=== PATIENT | female | born 2000 | race Two or more races ===

== ENCOUNTER 2021-07-13 13:52 | Emergency (ER) | payer OTHER ==
[~2021-07-13] VITALS: Ht 149.9 cm; Wt 41.7 kg
[2021-07-13] MEDS ORDERED: PRENATAL + DHA1 EAC1 (14:20)
== END 2021-07-13 18:56 | disposition home or self-care (01) ==
LOC: ER 13:52
DX: O26.891 Other specified pregnancy related conditions, first trimester (principal); Z3A.11 11 weeks gestation of pregnancy; R10.2 Pelvic and perineal pain

== ENCOUNTER 2024-07-23 10:13 | Outpatient (CLI) | payer OTHER ==
[~2024-07-23 10:13] MED LIST: PRENATAL + DHA1 EAC1
== END 2024-07-23 10:15 | disposition home or self-care (01) ==
LOC: PRENATAL 10:13
PROVIDERS: ATTEND Obstetrics & Gynecology Maternal & Fetal Medicine
DX: O44.00 Complete placenta previa NOS or without hemorrhage, unspecified trimester (principal); Z3A.20 20 weeks gestation of pregnancy

== ENCOUNTER → 2024-09-15 13:59 | Outpatient (CLI) | payer OTHER | END | disposition home or self-care (01) | LOC: PRENATAL 13:59 | PROVIDERS: ATTEND Obstetrics & Gynecology Maternal & Fetal Medicine | DX: O26.849 Uterine size-date discrepancy, unspecified trimester (principal); O36.8199 Decreased fetal movements, unspecified trimester, other fetus; Z3A.28 28 weeks gestation of pregnancy ==

== ENCOUNTER 2024-10-15 22:48 | Inpatient (IN) | payer OTHER ==
[~2024-10-15] VITALS: Ht 149.9 cm; Wt 50.8 kg
[2024-10-15 21:59] VITALS: BP 109/71
[2024-10-15 23:13] VITALS: BP 109/71
[2024-10-15] MEDS ORDERED: NIFEDIPINE 30 MG TAB.SA.OSM PO ONE (23:15)
[2024-10-15] MEDS ORDERED: RINGERS SOLUTION,LACTATED 150 ML IV SCH (23:15)
[2024-10-15 23:33] LABS: HEMATOCRIT 31.1 % (36.0-45.00); HEMOGLOBIN 10.5 g/dL (12.0-15.00); MEAN CELL VOLUME 91.1 fL (80.00-100.00); MEAN CORPUSCULAR HEMOGLOBIN 30.8 pg (27.00-32.0); MEAN CORPUSCULAR HGB CONC 33.8 g/dl (32.0-36.0); PLATELET COUNT 322 K/uL (150-450); RED BLOOD COUNT 3.42 M/uL (4.00-6.00); RED CELL DISTRIBUTION WIDTH 12.9 % (11.5-14.5)
[2024-10-15 23:34] LABS: PH,URINE 5.5 (5.0-8.0); URINE APPEARANCE Clear; URINE BACTERIA 2171.3 uL (0.0-1933); URINE BILIRRUBIN Negative (NEGATIVE); URINE BLOOD Negative; URINE COLOR Yellow; URINE EPITHELIAL CELLS 118.1 uL (0.0-38.8); URINE KETONE Negative (NEGATIVE); URINE LEUKOCYTE Trace; URINE NITRATE Negative; URINE PROTEIN Negative (NEGATIVE); URINE UROBILINOGEN 0.2 E.U./dl; URINE WBC 17.7 uL (0.0-23.2)
[2024-10-15 23:37] LABS: URINE CAST 0.29 uL (0.0-1.40); URINE GLUCOSE 100 MG/DL (NEGATIVE); URINE RBC 1.1 uL (0.0-20.8)
[2024-10-16] MEDS ORDERED: CEFAZOLIN SODIUM 1,000 MG VIAL IV SCH
[2024-10-16 04:08] VITALS: BP 93/52
[2024-10-16 06:02] VITALS: BP 99/62; O2SAT 100
[2024-10-16] MEDS ORDERED: BETAMETHASONE ACETATE,SOD PHOS 30 MG/5 ML ML ONE (10:58)
[2024-10-16] MEDS ORDERED: BETAMETHASONE ACETATE,SOD PHOS 30 MG/5 ML ML IM STA (12:31)
[2024-10-16 15:07] VITALS: BP 101/60
[2024-10-16 19:35] VITALS: BP 105/64
[2024-10-16] MEDS ORDERED: NIFEDIPINE 30 MG TAB.SA.OSM PO SCH (21:45)
[2024-10-16 23:26] VITALS: BP 95/52
[2024-10-17 03:00] VITALS: BP 90/60
[2024-10-17 07:33] VITALS: BP 91/50
[2024-10-17] MEDS ORDERED: TERBUTALINE SULFATE 1 MG/ML AMPUL SUBCUTANEO NR (08:30)
[2024-10-17 11:15] VITALS: BP 103/60
[2024-10-17] MEDS ORDERED: BETAMETHASONE ACETATE,SOD PHOS 30 MG/5 ML ML IM ONE (11:15)
[2024-10-17 15:07] VITALS: BP 102/58
[2024-10-17 19:55] VITALS: BP 104/50
[2024-10-17 23:05] VITALS: BP 102/59
[2024-10-18 04:13] VITALS: BP 87/60
[2024-10-18 07:08] VITALS: BP 99/58
[2024-10-18 11:51] VITALS: BP 101/58
[2024-10-18 15:13] VITALS: BP 107/73
[2024-10-18 20:00] VITALS: BP 113/73
[2024-10-18 23:12] VITALS: BP 113/72
[2024-10-19 03:10] VITALS: BP 107/54
[2024-10-19 07:03] VITALS: BP 104/64
[2024-10-19 11:10] VITALS: BP 103/64; O2SAT 99
[2024-10-19 15:05] VITALS: BP 106/70
== END 2024-10-19 16:31 | disposition home or self-care (01) | DRG 833 ==
LOC: OBS/DEL 22:48 → LDR 10-16 12:25 → OBS/DEL 10-16 12:25 → LDR 10-19 16:31
PROVIDERS: ADMIT Obstetrics & Gynecology Obstetrics; ATTEND Obstetrics & Gynecology Obstetrics
PROC: 4A1HXCZ Monitoring of Products of Conception, Cardiac Rate, External Approach (ICD-10-PCS; principal; 2024-10-16)
PROC: BY4FZZZ Ultrasonography of Third Trimester, Single Fetus (ICD-10-PCS; 2024-10-16)
PROC: BU4CZZZ Ultrasonography of Uterus and Ovaries (ICD-10-PCS; 2024-10-16)
DX: O60.03 Preterm labor without delivery, third trimester (principal); O99.893 Other specified diseases and conditions complicating puerperium; O26.843 Uterine size-date discrepancy, third trimester; O36.8130 Decreased fetal movements, third trimester, not applicable or unspecified; Z3A.32 32 weeks gestation of pregnancy

== ENCOUNTER 2024-10-28 10:10 | Outpatient (CLI) | payer OTHER | END 2024-10-28 10:11 | disposition home or self-care (01) | LOC: PRENATAL 10:10 | PROVIDERS: ATTEND Obstetrics & Gynecology Maternal & Fetal Medicine | DX: O26.849 Uterine size-date discrepancy, unspecified trimester (principal); O36.8199 Decreased fetal movements, unspecified trimester, other fetus; O60.00 Preterm labor without delivery, unspecified trimester; O26.899 Other specified pregnancy related conditions, unspecified trimester; Z3A.33 33 weeks gestation of pregnancy ==

== ENCOUNTER 2024-11-14 07:48 | Inpatient (IN) | payer OTHER ==
[2024-11-14] VITALS (9 sets, daily range): BP systolic 103–119; BP diastolic 58–84
[~2024-11-14] VITALS: Ht 149.9 cm; Wt 51.3 kg
[2024-11-14] MEDS ORDERED: AMPICILLIN SODIUM 2,000 MG VIAL ONE (07:57)
[2024-11-14] MEDS ORDERED: AMPICILLIN SODIUM 2,000 MG VIAL IV ONE (08:15)
[2024-11-14] MEDS ORDERED: RINGERS SOLUTION,LACTATED 1,000 ML IV SCH (08:15)
[2024-11-14 09:25] LABS: BASO % 0.4 % (0.1-1.2); EOS # 0.23 (0.04-0.54); HEMATOCRIT 31.8 % (34.1-44.9); HEMOGLOBIN 10.8 g/dL (11.2-15.7); LYMPH # 1.53 (1.18-3.74); LYMPH % 19.9 % (19.3-53.1); MEAN CORPUSCULAR HEMOGLOBIN 30.1 pg (25.6-32.2); MONO # 0.61 (0.24-0.82); MONO % 7.9 % (4.7-12.5); NEUT # 5.23 (1.56-6.13); PLATELET COUNT 308 K/uL (163-369); RED BLOOD COUNT 3.59 M/uL (3.93-5.22); RED CELL DISTRIBUTION WIDTH 12.5 % (11.6-14.4)
[2024-11-14 09:42] LABS: URINE APPEARANCE Clear; URINE BILIRRUBIN Negative (NEGATIVE); URINE BLOOD Negative; URINE COLOR Yellow; URINE GLUCOSE Negative (NEGATIVE); URINE KETONE Negative (NEGATIVE); URINE LEUKOCYTE Trace; URINE NITRATE Negative; URINE PROTEIN Negative (NEGATIVE)
[2024-11-14 09:47] LABS: URINE EPITHELIAL CELLS 92.7 uL (0.0-38.8); URINE WBC 14.8 uL (0.0-23.2)
[2024-11-14 09:48] LABS: INR 0.94; PARTIAL THROMBOPLASTIN TIME 27.6 SECONDS (22.0-34.0); PROTHROMBIN TIME 10.3 SECONDS (9.0-11.5)
[2024-11-14 10:08] LABS: TYPE CELLS SQUAMOUS; URINE CAST 0.29 uL (0.0-1.40)
[2024-11-14 10:39] LABS: ALBUMIN 2.9 gm/dL (3.4-5.0); BILIRUBIN TOTAL 0.39 mg/dL (0.3-1.2); CALCIUM 8.7 mg/dL (8.5-10.1); CREATININE SERUM 0.54 mg/dL (0.55-1.02); GFR 139.9; GLOBULINA 3.6 G/DL (2.4-3.5); POTASSIUM 3.81 mEq/L (3.5-5.1); TOTAL PROTEIN 6.5 gm/dL (6.4-8.2)
[2024-11-14] MEDS ORDERED: AMPICILLIN SODIUM 1,000 MG VIAL IV SCH (12:00)
[2024-11-14] MEDS ORDERED: OXYTOCIN 20 UNITS/500ML RL PIGGYBAG IV ONE ×2 (13:21→13:45)
[2024-11-14] MEDS ORDERED: LIDOCAINE HCL 1% 10ML VIAL ONE (13:34)
[2024-11-14] MEDS ORDERED: ERYTHROMYCIN BASE OPHT 1GM EACH TUBE OP ONE (13:34)
[2024-11-14] MEDS ORDERED: CHLORHEXIDINE GLUCONATE 120 ML BOTTLE TOP ONE (13:34)
[2024-11-14] MEDS ORDERED: OXYTOCIN 20 UNITS/1000ML RL PIGGYBAG IV ONE (13:34)
[2024-11-14] MEDS ORDERED: CHLORHEXIDINE GLUCONATE 120 ML BOTTLE TP SCH (17:15)
[2024-11-14] MEDS ORDERED: IBUprofen 400 MG TABLET PO PRN (17:15)
[2024-11-14] MEDS ORDERED: OXYTOCIN 1,000 ML IV SCH (17:15)
[2024-11-15] VITALS: BP 104/67
[2024-11-15 09:08] VITALS: BP 100/64
[2024-11-15 17:15] VITALS: BP 103/63
[2024-11-16 01:27] VITALS: BP 117/61
[2024-11-16 08:52] VITALS: BP 116/80
== END 2024-11-16 15:48 | disposition home or self-care (01) | DRG 807 ==
LOC: LDR 07:48 → OB/GYN 17:30
PROVIDERS: ADMIT Obstetrics & Gynecology Obstetrics; ATTEND Obstetrics & Gynecology Obstetrics
PROC: 10E0XZZ Delivery of Products of Conception, External Approach (ICD-10-PCS; principal; 2024-11-14)
PROC: 4A1HXCZ Monitoring of Products of Conception, Cardiac Rate, External Approach (ICD-10-PCS; 2024-11-14)
DX: O60.14X0 Preterm labor third trimester with preterm delivery third trimester, not applicable or unspecified (principal); Z37.0 Single live birth; Z3A.36 36 weeks gestation of pregnancy